=== PATIENT | male | born 1965 | race Caucasian/White ===

== ENCOUNTER 2022-04-08 11:24 | Inpatient (IN) ==
[2022-04-08 13:42] LABS: BUN/Creatinine Ratio 14 (6-26); Blood Urea Nitrogen 15 mg/dL (6-20); C-Reactive Protein > 300 mg/L (Less than 10); Calcium 9.5 mg/dL (8.6-10.3); Carbon Dioxide 26 mEq/L (23-29); Chloride 95 mEq/L (98-107); Glucose 269 mg/dL (70-105); Osmolality,Calculated 282 (280-300); Potassium 4.1 mEq/L (3.5-5.1); Sodium 131 mEq/L (136-145); eGFR For African Americans > 60 (> 60); eGFR For Non-African Americans > 60 (> 60)
[2022-04-08 13:43] LABS: Basophils # 0.1 K/mcL (0.0-0.2); Basophils % 0.3 %; Eosinophils % 0.2 %; Hematocrit 44.8 % (37.5-50.1); Hemoglobin 15.2 g/dL (12.9-16.9); Immature Granulocytes % 1.1 % (0-4); Lymphocytes # 1.3 K/mcL (0.6-4.6); Lymphocytes % 8.5 %; Mean Corpuscular HGB Conc 33.9 g/dL (31.6-35.5); Mean Corpuscular Hemoglobin 28.1 pg (28.0-33.3); Mean Corpuscular Volume 82.8 fL (83.0-100.0); Mean Platelet Volume 10.5 fL (9.4-12.4); Monocytes # 1.4 K/mcL (0.0-1.3); Monocytes % 8.8 %; Neutrophils # 12.6 K/mcL (1.6-8.9); Platelet Count 247 K/mcL (140-400); Red Blood Count 5.41 M/mcL (4.19-5.50); Red Cell Distribution Width 13.2 % (11.5-14.5); Segmented Neutrophils % 81.1 %; White Blood Count 15.5 K/mcL (4.3-11.1)
[2022-04-08] MEDS ORDERED: Iopamidol - 370 500 ML MLS IVP ONE (14:00)
[2022-04-08] MEDS ORDERED: Cefepime HCl 2,000 MG in 0.9 % Sodium Chloride 10 ML IVP ONE (14:48)
[2022-04-08] MEDS ORDERED: Vancomycin 1,250 MG/262.5 ML IV.SOLN IVPB ONE (14:51)
[2022-04-08] MEDS ORDERED: Vancomycin 1,500 MG/265 ML IV.SOLN IVPB ONE ×2 (15:00)
[2022-04-08] MEDS ORDERED: *HR* HYDROcodone/Acet 5/325 mg TABLET PO PRN (16:48)
[2022-04-08] MEDS ORDERED: *HR* Dextrose 50 % in Water (Syg) 50 ML SYRINGE IVP PRN (16:48)
[2022-04-08] MEDS ORDERED: *HR* OxyCODONE Immed Rel 5 MG TABLET PO PRN (16:48)
[2022-04-08] MEDS ORDERED: Ondansetron 4 MG/2 ML VIAL IVP PRN (16:48)
[2022-04-08] MEDS ORDERED: Dextrose Gel 15 GM/37.5 ML TUBE PO PRN ×2 (16:48)
[2022-04-08] MEDS ORDERED: Acetaminophen 325 MG TABLET PO PRN (16:48)
[2022-04-08] MEDS ORDERED: Naloxone 0.4 MG/ML INJ IVP PRN (16:48)
[2022-04-08] MEDS ORDERED: D5% in Water 1,000 ML IVC PRN (16:48)
[2022-04-08] MEDS ORDERED: 0.9 % Sodium Chloride 1,000 ML IVC SCH (17:00)
[2022-04-09] MEDS: Cefepime HCl 2,000 MG in 0.9 % Sodium Chloride 10 ML IVP SCH ×2 (02:56→17:15)
[2022-04-09] MEDS: *HR* Enoxaparin 40 MG/0.4 ML SYRINGE SQ SCH (03:35)
[2022-04-09 06:33] LABS: Basophils % 0.3 %; Eosinophils % 0.2 %; Hematocrit 41.3 % (37.5-50.1); Hemoglobin 13.9 g/dL (12.9-16.9); Immature Granulocytes % 0.7 % (0-4); Lymphocytes # 1.3 K/mcL (0.6-4.6); Lymphocytes % 10.6 %; Mean Corpuscular HGB Conc 33.7 g/dL (31.6-35.5); Mean Corpuscular Hemoglobin 27.8 pg (28.0-33.3); Mean Corpuscular Volume 82.6 fL (83.0-100.0); Mean Platelet Volume 10.4 fL (9.4-12.4); Monocytes # 1.1 K/mcL (0.0-1.3); Monocytes % 9.1 %; Neutrophils # 9.7 K/mcL (1.6-8.9); Platelet Count 236 K/mcL (140-400); Segmented Neutrophils % 79.1 %; White Blood Count 12.3 K/mcL (4.3-11.1)
[2022-04-09 07:17] LABS: BUN/Creatinine Ratio 18 (6-26); Blood Urea Nitrogen 18 mg/dL (6-20); Calcium 8.9 mg/dL (8.6-10.3); Carbon Dioxide 23 mEq/L (23-29); Chloride 98 mEq/L (98-107); Glucose 245 mg/dL (70-105); Magnesium 1.9 mg/dL (1.6-2.6); Osmolality,Calculated 284 (280-300); Potassium 3.7 mEq/L (3.5-5.1); Sodium 132 mEq/L (136-145); eGFR For African Americans > 60 (> 60); eGFR For Non-African Americans > 60 (> 60)
[2022-04-09] MEDS: Insulin LISPRO 300 UNITS/3 ML VIAL SUBQ SCH ×3 (11:20→17:20)
[2022-04-09] MEDS ORDERED: *HR* Midazolam HCl 2 MG/2 ML VIAL ONE (13:49)
[2022-04-09] MEDS ORDERED: Lidocaine -MPF 2% 5 ML VIAL ONE (13:49)
[2022-04-09] MEDS ORDERED: *HR* Propofol 200 MG/20 ML VIAL IVP ONE (13:49)
[2022-04-09] MEDS ORDERED: *HR* FentaNYL (PF) 100 MCG/2 ML VIAL ONE (13:49)
[2022-04-09] MEDS ORDERED: *HR* HYDROmorphone PF 0.5 MG/0.5 ML SYRINGE IVP PRN (14:03)
[2022-04-09] MEDS ORDERED: Ondansetron 4 MG/2 ML VIAL IVP PRN ×2 (14:03→14:54)
[2022-04-09] MEDS ORDERED: *HR* FentaNYL (PF) 100 MCG/2 ML VIAL IVP PRN (14:03)
[2022-04-09] MEDS ORDERED: *HR* OxyCODONE Immed Rel 5 MG TABLET PO PRN (14:03)
[2022-04-09] MEDS ORDERED: *HR* Labetalol 20 MG/4 ML SYRINGE IVP PRN (14:03)
[2022-04-09] MEDS ORDERED: Vancomycin 1,000 MG VIAL ONE (14:17)
[2022-04-09] MEDS ORDERED: *HR* HYDROMORPHONE 2 MG/ML VIAL ONE (14:20)
[2022-04-09] MEDS ORDERED: MOM Conc 10 ML UD.LIQ PO PRN (14:54)
[2022-04-09] MEDS ORDERED: *HR* Promethazine 25 MG/ML VIAL IM PRN (14:54)
[2022-04-09] MEDS ORDERED: Naloxone 0.4 MG/ML INJ IVP PRN (14:54)
[2022-04-09] MEDS ORDERED: Sennosides 8.6 MG TABLET PO PRN (14:54)
[2022-04-09] MEDS ORDERED: Ringers Solution, Lactated 1,000 ML IVC SCH (15:00)
[2022-04-09] MEDS: Ascorbic Acid 500 MG TABLET PO SCH (17:14)
[2022-04-10 02:02] LABS: BUN/Creatinine Ratio 24 (6-26); Blood Urea Nitrogen 24 mg/dL (6-20); Calcium 8.9 mg/dL (8.6-10.3); Carbon Dioxide 23 mEq/L (23-29); Chloride 97 mEq/L (98-107); Glucose 412 mg/dL (70-105); Magnesium 2.1 mg/dL (1.6-2.6); Osmolality,Calculated 295 (280-300); Potassium 4.4 mEq/L (3.5-5.1); Sodium 132 mEq/L (136-145); eGFR For African Americans > 60 (> 60); eGFR For Non-African Americans > 60 (> 60)
[2022-04-10 02:08] LABS: Basophils % 0.2 %; Hematocrit 40.5 % (37.5-50.1); Hemoglobin 13.5 g/dL (12.9-16.9); Immature Granulocytes % 1.1 % (0-4); Lymphocytes # 0.8 K/mcL (0.6-4.6); Lymphocytes % 8.1 %; Mean Corpuscular HGB Conc 33.3 g/dL (31.6-35.5); Mean Corpuscular Hemoglobin 28.1 pg (28.0-33.3); Mean Corpuscular Volume 84.2 fL (83.0-100.0); Mean Platelet Volume 10.4 fL (9.4-12.4); Monocytes # 0.3 K/mcL (0.0-1.3); Monocytes % 2.5 %; Neutrophils # 8.9 K/mcL (1.6-8.9); Platelet Count 245 K/mcL (140-400); Red Blood Count 4.81 M/mcL (4.19-5.50); Red Cell Distribution Width 12.9 % (11.5-14.5); Segmented Neutrophils % 88.1 %; White Blood Count 10.1 K/mcL (4.3-11.1)
[2022-04-10 03:27] LABS: Estimated Average Glucose 209 mg/dl; Hemoglobin A1C 8.9 %
[2022-04-10] MEDS: Cefepime HCl 2,000 MG in 0.9 % Sodium Chloride 10 ML IVP SCH ×2 (03:46→15:36)
[2022-04-10] MEDS: *HR* Enoxaparin 40 MG/0.4 ML SYRINGE SQ SCH (05:23)
[2022-04-10] MEDS: Multivit/Ca/Min/Fe/FA 1 TAB TABLET PO SCH (09:31)
[2022-04-10] MEDS: Ascorbic Acid 500 MG TABLET PO SCH ×2 (09:31→17:08)
[2022-04-10] MEDS: Insulin LISPRO 300 UNITS/3 ML VIAL SUBQ SCH ×3 (11:30→17:09)
[2022-04-10] MEDS: Vancomycin 1,250 MG/262.5 ML IV.SOLN IVPB SCH (17:09)
[2022-04-10] MEDS: Insulin DETEMIR 100 UNIT/ML X5UNITS SUBQ SCH (21:45)
[2022-04-11 05:22] LABS: BUN/Creatinine Ratio 25 (6-26); Blood Urea Nitrogen 28 mg/dL (6-20); Calcium 8.4 mg/dL (8.6-10.3); Carbon Dioxide 28 mEq/L (23-29); Chloride 102 mEq/L (98-107); Glucose 266 mg/dL (70-105); Osmolality,Calculated 297 (280-300); Potassium 3.8 mEq/L (3.5-5.1); Sodium 136 mEq/L (136-145); eGFR For African Americans > 60 (> 60); eGFR For Non-African Americans > 60 (> 60)
[2022-04-11] MEDS: Cefepime HCl 2,000 MG in 0.9 % Sodium Chloride 10 ML IVP SCH ×2 (06:14→16:46)
[2022-04-11] MEDS: Vancomycin 1,250 MG/262.5 ML IV.SOLN IVPB SCH ×2 (06:15→16:45)
[2022-04-11] MEDS: *HR* Enoxaparin 40 MG/0.4 ML SYRINGE SQ SCH (06:16)
[2022-04-11] MEDS: Multivit/Ca/Min/Fe/FA 1 TAB TABLET PO SCH (07:28)
[2022-04-11] MEDS: Ascorbic Acid 500 MG TABLET PO SCH ×2 (07:28→16:45)
[2022-04-11] MEDS: Insulin LISPRO 300 UNITS/3 ML VIAL SUBQ SCH ×3 (07:29→16:49)
[2022-04-11] MEDS ORDERED: Lidocaine -MPF 2% 5 ML VIAL ONE (10:16)
[2022-04-11] MEDS ORDERED: *HR* Midazolam HCl 2 MG/2 ML VIAL ONE (10:16)
[2022-04-11] MEDS ORDERED: *HR* Propofol 200 MG/20 ML VIAL IVP ONE (10:16)
[2022-04-11] MEDS ORDERED: *HR* FentaNYL (PF) 100 MCG/2 ML VIAL ONE (10:16)
[2022-04-11] MEDS ORDERED: Vancomycin 1,000 MG VIAL ONE (11:14)
[2022-04-11] MEDS ORDERED: Ondansetron 4 MG/2 ML VIAL ONE (11:33)
[2022-04-11] MEDS ORDERED: Naloxone 0.4 MG/ML INJ IVP PRN (12:14)
[2022-04-11] MEDS ORDERED: Ringers Solution, Lactated 1,000 ML IVC SCH (12:15)
[2022-04-11] MEDS: Insulin DETEMIR 100 UNIT/ML X5UNITS SUBQ SCH (19:53)
[2022-04-12 05:20] LABS: BUN/Creatinine Ratio 22 (6-26); Basophils # 0.1 K/mcL (0.0-0.2); Basophils % 0.7 %; Blood Urea Nitrogen 24 mg/dL (6-20); Calcium 8.7 mg/dL (8.6-10.3); Carbon Dioxide 28 mEq/L (23-29); Chloride 102 mEq/L (98-107); Eosinophils % 0.1 %; Glucose 226 mg/dL (70-105); Hematocrit 39.4 % (37.5-50.1); Hemoglobin 13.1 g/dL (12.9-16.9); Immature Granulocytes % 1.4 % (0-4); Lymphocytes # 2.6 K/mcL (0.6-4.6); Mean Corpuscular HGB Conc 33.2 g/dL (31.6-35.5); Mean Corpuscular Hemoglobin 27.8 pg (28.0-33.3); Mean Corpuscular Volume 83.7 fL (83.0-100.0); Mean Platelet Volume 9.8 fL (9.4-12.4); Monocytes # 0.7 K/mcL (0.0-1.3); Monocytes % 6.5 %; Neutrophils # 6.8 K/mcL (1.6-8.9); Osmolality,Calculated 291 (280-300); Platelet Count 311 K/mcL (140-400); Potassium 3.9 mEq/L (3.5-5.1); Red Blood Count 4.71 M/mcL (4.19-5.50); Red Cell Distribution Width 12.7 % (11.5-14.5); Segmented Neutrophils % 66.3 %; Sodium 135 mEq/L (136-145); White Blood Count 10.3 K/mcL (4.3-11.1); eGFR For African Americans > 60 (> 60); eGFR For Non-African Americans > 60 (> 60)
[2022-04-12] MEDS: Cefepime HCl 2,000 MG in 0.9 % Sodium Chloride 10 ML IVP SCH (05:53)
[2022-04-12] MEDS: *HR* Enoxaparin 40 MG/0.4 ML SYRINGE SQ SCH (05:54)
[2022-04-12] MEDS: Vancomycin 1,250 MG/262.5 ML IV.SOLN IVPB SCH (05:54)
[2022-04-12] MEDS: Multivit/Ca/Min/Fe/FA 1 TAB TABLET PO SCH ×2 (07:48→09:06)
[2022-04-12] MEDS: Ascorbic Acid 500 MG TABLET PO SCH ×2 (07:48→16:38)
[2022-04-12] MEDS: Insulin LISPRO 300 UNITS/3 ML VIAL SUBQ SCH ×2 (07:49→12:13)
[2022-04-12] MEDS: CeFAZolin 2,000 MG/120 ML BAG IVPB SCH ×2 (16:37→23:27)
[2022-04-12 19:23] VITALS: BP 116/75; PULSE 69; TEMP 98.9; O2SAT 97
[2022-04-12] MEDS: Insulin DETEMIR 100 UNIT/ML X5UNITS SUBQ SCH (20:28)
[2022-04-13] MEDS: *HR* Enoxaparin 40 MG/0.4 ML SYRINGE SQ SCH (03:42)
[2022-04-13] MEDS: Multivit/Ca/Min/Fe/FA 1 TAB TABLET PO SCH ×2 (10:19)
[2022-04-13] MEDS: Ascorbic Acid 500 MG TABLET PO SCH (10:19)
[2022-04-13] MEDS: Insulin LISPRO 300 UNITS/3 ML VIAL SUBQ SCH (10:19)
[2022-04-13] MEDS: CeFAZolin 2,000 MG/120 ML BAG IVPB SCH (10:19)
== END 2022-04-13 10:45 | disposition home or self-care (01) | DRG 855 ==
LOC: 4WAOSI 11:24 → EMEROOARM 11:24 → SUATTDRO 16:26 → 4WAOSI 17:25 → SUATTDRO 04-09 14:48
PROVIDERS: ADMIT Internal Medicine; ATTEND Internal Medicine